=== PATIENT | female | born 1975 | race Caucasian/White ===

== ENCOUNTER 2016-09-12 13:29 | Emergency (ER) | payer OTHER ==
[2016-09-12 13:36] VITALS: BP 123/78
--- NOTE | 2016-09-12 14:27 | RAD ---
HISTORY: Cough COMPARISONS: December 15, 2015 VIEWS: 2: Frontal dual-energy and lateral views of the chest. FINDINGS: CARDIOMEDIASTINAL SILHOUETTE: The cardiomediastinal silhouette is normal. KRISTAN: The kristan are normal. PLEURA: The costophrenic angles are sharp. No pleural abnormalities are noted. LUNG PARENCHYMA: The lungs are clear. ABDOMEN: The upper abdomen is clear. There is no subphrenic gas. BONES AND SOFT TISSUES: Degenerative changes are noted along the spine. OTHER: None. IMPRESSION: NO ACTIVE CARDIOPULMONARY DISEASE.
--- NOTE | 2016-09-12 14:34 | ED ---
Respiratory - HPI Summary HPI Summary: 41F presents with cough for 3 weeks. She had fever weeks ago. She states that her cough does not seem to be getting better. She states she only has SOB when she walks and starts coughing. She denies any chest pain. She denies any calf pain or swelling. She denies any sore throat, abdominal pain, n/v/d, or sinus congestion. She denies any history of asthma or COPD. She is a nonsmoker. She does have a history of DVT many years ago. She is not on any blood thinners currently. - History of Current Complaint Chief Complaint: EDUpperRespComplaint Stated Complaint: COUGH Time Seen by Provider: 09/12/16 13:56 Pain Intensity: 4 - Allergy/Home Medications Allergies/Adverse Reactions: Allergies Allergy/AdvReac Type Severity Reaction Status Date / Time Amoxicillin Allergy Hives Verified 09/12/16 13:32 Bee Venom Allergy Anaphylatic Verified 09/12/16 13:32 Shock Sulfa Antibiotics Allergy Hives Verified 09/12/16 13:32 PMH/Surg Hx/FS Hx/Imm Hx Endocrine/Hematology History: Reports: Hx Diabetes - metformin, Hx Thyroid Disease - synthroid Cardiovascular History: Reports: Hx Hypertension - propanolol Neurological History: Reports: Hx Migraine Psychiatric History: Reports: Hx Anxiety, Hx Depression, Hx Post Traumatic Stress Disorder - Surgical History Surgery Procedure, Year, and Place: Fatty tissue removed from Left breast ( [place], 2006). C Section ( [facility]. 14 years ago) Infectious Disease History: Yes Infectious Disease History: Denies: Traveled Outside the [place] in Last 30 Days - Family History Known Family History: Positive: Cardiac Disease - Social History Alcohol Use: Rare Substance Use Type: Reports: Heroin Substance Use Comment - Amount & Last Used: 12/15/15-overdose Smoking Status (MU): Never Smoked Tobacco Review of Systems Negative: Fever Negative: Chest Pain Positive: Shortness Of Breath - when coughs, Cough Negative: Abdominal Pain All Other Systems Reviewed And Are Negative: Yes Physical Exam Triage Information Reviewed: Yes Vital Signs On Initial Exam: Initial Vitals Temp Pulse Resp BP Pulse Ox 97.6 F 84 18 123/78 98 09/12/16 13:33 09/12/16 13:33 09/12/16 13:33 09/12/16 13:33 09/12/16 13:33 Vital Signs Reviewed: Yes Appearance: Positive: Well-Appearing Skin: Positive: Warm, Dry Head/Face: Positive: Normal Head/Face Inspection Eyes: Positive: Normal, Conjunctiva Clear ENT: Positive: Normal ENT inspection, Pharynx normal, TMs normal Neck: Positive: Supple, Nontender Respiratory/Lung Sounds: Positive: Clear to Auscultation, Breath Sounds Present , Other - neg egophony Cardiovascular: Positive: Normal, RRR Musculoskeletal: Positive: Other - good pulses. Negative: Luis Angel Sign Left, Luis Angel Sign Right, Edema Left, Edema Right Diagnostics - Vital Signs Vital Signs Temp Pulse Resp BP Pulse Ox 09/12/16 13:33 97.6 F 84 18 123/78 98 - Laboratory Lab Statement: Any lab studies that have been ordered have been reviewed, and results considered in the medical decision making process. - Radiology chest Xray Interpretation: No Acute Changes Radiology Interpretation Completed By: Radiologist - EKG No standard instances Cardiac Rate: NL EKG Rhythm: Sinus Rhythm Disposition - Course Course Of Treatment: 41F presents with cough for 3 weeks. states that is not getting better. denies any chest pain, states only SOB when coughs nothing at rest. has h/o of DVT but denies any calf pain currently. lungs CTA. neg homans test. Her vitals are normal is not tachycardiac and has normal o2 stat. Got EKG normal. patient does not want blood work. explained at risk of PE due to previous DVT but patient says that thinks only SOB due to cough and does not believe has blood clot. explained risks of PE and patient understands and still does not want lab work or CTA. chest xray normal. will give prednisone, tessalon , and inhaler. patient is prediabetic and manage DM with diet. explained prednisone will increase sugars. told if devalop chest pain or SOB to return for CTA. patient understand and agrees with plan - Differential Dx - Cardiopulmonary Differential Diagnoses - Cardiopulmonary: Bronchitis, Lower Resp Infection, Pulmonary Embolism - Diagnoses Provider Diagnoses: Cough Discharge - Discharge Plan Condition: Good Disposition: HOME Prescriptions: Albuterol HFA INHALER* [Ventolin HFA Inhaler*] 1 puff INH Q4H PRN #1 mdi PRN Reason: Cough Benzonatate CAP* [Tessalon 100 MG CAP*] 100 mg PO TID #15 cap predniSONE TAB* [Deltasone TAB*] 40 mg PO DAILY #5 tab Patient Education Materials: Acute Bronchitis (ED) Referrals: [facility] [place] [facility]IAN REFERRAL [Outside] Additional Instructions: Use Tessalon three times a day for cough Use one puff inhaler every 6 hours for cough Take steroid once a day for 5 days Use saline in the nose for any nasal congestion Use humidifier or place warm bowls of water around the room to prevent cough Cough can last up to 4 weeks Establish care with primary care physician Return to ED if develop chest pain or shortness of breath or any new or worsening symptoms
== END 2016-09-12 14:50 | disposition home or self-care (01) ==
LOC: ED 13:29
DX: R05 Cough (principal); R06.02 Shortness of breath
CPT/HCPCS: 71020; 93005; 99282

== ENCOUNTER 2016-10-12 16:04 | Emergency (ER) | payer OTHER ==
[2016-10-12] MEDS ORDERED: HYDROcodone/ACETAMIN 5-325 MG* 1 TAB PO ONE (17:32)
--- NOTE | 2016-10-12 18:27 | RAD ---
Indication: Left upper extremity pain Duplex Doppler sonography of the left upper extremity venous system was performed. Bilaterally the internal jugular veins appear patent with normal phasic flow. The subclavian vein demonstrates augmentation bilaterally with normal phasic flow. The left axillary vein, brachial vein, basilic vein and cephalic veins appear patent and compressible. The radial and ulnar veins are also patent and compressible. IMPRESSION: No definite evidence of deep venous thrombosis of left upper extremity.
[2016-10-12 19:34] LABS: Hematocrit 42 % (35-47); Hemoglobin 13.5 g/dl (12.0-16.0); Mean Corpuscular HGB Conc 33 g/dl (31-36); Mean Corpuscular Hemoglobin 27 pg (27-31); Mean Corpuscular Volume 84 fL (80-97); Mean Platelet Volume 9 um3 (7.4-10.4); Red Blood Count 4.94 10^6/ul (4.0-5.4); Red Cell Distribution Width 16 % (10.5-15); White Blood Count 13.6 10^3/ul (3.5-10.8)
[2016-10-12 19:46] LABS: C Reactive Protein 22.09 mg/L (< 5.00); Calcium 8.9 mg/dL (8.6-10.3); EGFR African American 100.2 (>60); EGFR Non-African American 77.9 (>60)
[2016-10-12] MEDS ORDERED: oxyCODONE/Acetamin 5/325 MG* TAB PO ONE (19:54)
[2016-10-12] MEDS ORDERED: Cephalexin CAP* 500 MG PO ONE (19:54)
[2016-10-12 20:25] LABS: Erythrocyte Sed Rate 20 mm/Hr (0-14)
[2016-10-12 20:26] VITALS: BP 136/65
--- NOTE | 2016-10-14 08:35 | ED ---
I, Oh,Sonali, scribed for Fazal Ochoa MD on 10/12/16 at 1736 . Upper Extremity Pain - HPI Summary HPI Summary: This 41 y/o female presents to ED for LUE pain, swelling, and numbness/tingling at tip of LUE digits since this morning. Pt woke up with LUE discomfort this morning. She reports "cold feelings" at LUE. PMHx does include borderline DM, LUE wrist fx, IVDA with heroine OD, and DVT. Negative hx of open wound. Pt does have regular hot and cold flashes. Negative n/v, fever, or dysuria. Movement and palpation make the pain worse. - History of Current Complaint Chief Complaint: EDExtremityUpper Stated Complaint: LEFT ARM SWELLING Time Seen by Provider: 10/12/16 17:22 Hx Obtained From: Patient, Medical Records Mechanism Of Injury: Unknown Onset/Duration: Started Hours Ago, Atraumatic, Still Present Timing: Constant Severity Initially: Mild Severity Currently: Mild Pain Location: Forearm - LUE Character: Dull Aggravating Factor(s): Movement, Other - palpation Alleviating Factor(s): Nothing Associated Signs & Symptoms: Positive: Numbness/Tingling - at LUE fingers. Negative: Fever, Nausea, Vomiting - Allergies/Home Medications Allergies/Adverse Reactions: Allergies Allergy/AdvReac Type Severity Reaction Status Date / Time Amoxicillin Allergy Hives Verified 10/12/16 16:22 Bee Venom Allergy Anaphylatic Verified 10/12/16 16:22 Shock Sulfa Antibiotics Allergy Hives Verified 10/12/16 16:22 PMH/Surg Hx/FS Hx/Imm Hx Endocrine/Hematology History: Reports: Hx Diabetes - metformin, Hx Thyroid Disease - synthroid Cardiovascular History: Reports: Hx Hypertension - propanolol Neurological History: Reports: Hx Migraine Psychiatric History: Reports: Hx Anxiety, Hx Depression, Hx Post Traumatic Stress Disorder - Surgical History Surgery Procedure, Year, and Place: Fatty tissue removed from Left breast ( [place], 2006). C Section ( [facility]. 14 years ago) Infectious Disease History: Yes Infectious Disease History: Denies: Traveled Outside the [place] in Last 30 Days - Family History Known Family History: Positive: Cardiac Disease - Social History Alcohol Use: Rare Substance Use Type: Reports: Heroin Substance Use Comment - Amount & Last Used: 12/15/15-overdose Smoking Status (MU): Never Smoked Tobacco Review of Systems Positive: Other - "cold feeling" at LUE forearm. Negative: Fever, Chills Negative: Erythema Negative: Sore Throat Negative: Palpitations, Chest Pain Negative: Shortness Of Breath, Cough Negative: Vomiting, Nausea Negative: dysuria, hematuria Positive: Edema - mild LUE edema, Other - LUE pain. Negative: Myalgia Negative: Rash, Bruising Positive: Numbness - LUE digits Negative: Anxious, Depressed All Other Systems Reviewed And Are Negative: Yes Physical Exam - Summary Physical Exam Summary: Constitutional: Well-developed, Well-nourished, Alert. (-) Distressed Skin: Warm, Dry. Mild erythema at Ulnar aspect of left forearm between elbow and wrist. LUE bicep is mildly cooler than the RUE bicep. HENT: Normocephalic; Atraumatic Eyes: Conjunctiva normal Neck: Musculoskeletal ROM normal neck. (-) JVD, (-) Stridor, (-) Tracheal deviation Cardio: Rhythm regular, rate normal, Heart sounds normal; Intact and strong pulse at LUE ulnar and radial; cap refill less than 2 second at LUE digits. Pulmonary/Chest wall: Effort normal. (-) Respiratory distress, (-) Wheezes, (-) Rales Abd: Soft, (-) Tenderness, (-) Distension, (-) Guarding, (-) Rebound Musculoskeletal: (-) Edema. Mild pain with range of motion and palpation at LUE forearm. Lymph: (-) Cervical adenopathy Neuro: Alert, Oriented x3 Psych: Mood and affect Normal Triage Information Reviewed: Yes Vital Signs On Initial Exam: Initial Vitals Temp Pulse Resp BP Pulse Ox 97.6 F 78 16 131/79 97 10/12/16 16:22 10/12/16 16:22 10/12/16 16:22 10/12/16 16:22 10/12/16 16:22 Vital Signs Reviewed: Yes Diagnostics - Vital Signs Vital Signs Temp Pulse Resp BP Pulse Ox 10/12/16 16:24 97.6 F 75 18 131/79 97 10/12/16 16:22 97.6 F 78 16 131/79 97 - Laboratory Result Diagrams: 10/12/16 19:25 10/12/16 19:25 Lab Statement: Any lab studies that have been ordered have been reviewed, and results considered in the medical decision making process. Re-Evaluation - Re-Evaluation First Eval Re-Evaluation Time: 20:03 Comment: Nontoxic appearance. Pt wishes to go home. Course/Dx - Course Assessment/Plan: This 41 y/o female presents to ED after waking up with acute LUE pain this morning. No evidence of tenosynovitis or deep seated infection at LUE. Pt dneies any IV drug use for over a year. No evidence for bacteremia. Advised. No IV drug use for over a year. Pt is discharged with rx for keflex and pain med. - Diagnoses Provider Diagnoses: Left arm cellulitis Discharge - Discharge Plan Condition: Stable Disposition: HOME Prescriptions: Cephalexin CAP* [Keflex CAP*] 500 mg PO QID #40 cap oxyCODONE/Acetamin 5/325 MG* [Percocet 5/325 TAB*] 1 tab PO Q6H PRN #15 tab MDD 4 PRN Reason: Pain Scale 6-10 Patient Education Materials: Cephalexin (By mouth), Oxycodone/Acetaminophen ( By mouth), Cellulitis (ED) Referrals: [facility] [place] [facility]IAN REFERRAL [Outside] - 2 Days The documentation as recorded by the Shaun linn Soohyun accurately reflects the service I personally performed and the decisions made by me, Fazal Ochoa MD.
== END 2016-10-12 20:14 | disposition home or self-care (01) ==
LOC: ED 16:04
DX: L03.114 Cellulitis of left upper limb (principal); E11.9 Type 2 diabetes mellitus without complications; I10 Essential (primary) hypertension; Z88.0 Allergy status to penicillin; Z88.2 Allergy status to sulfonamides; E07.9 Disorder of thyroid, unspecified
CPT/HCPCS: 36415; 80048; 85027; 85610; 85652; 85730; 86140; 99283; A9270-GY

== ENCOUNTER 2016-11-08 15:30 | Emergency (ER) | payer OTHER ==
[2016-11-08 15:34] VITALS: BP 148/79
--- NOTE | 2016-11-08 16:27 | RAD ---
HISTORY: Cough, shortness of breath COMPARISONS: September 12, 2016 VIEWS: 2: Frontal dual-energy and lateral views of the chest. FINDINGS: CARDIOMEDIASTINAL SILHOUETTE: The cardiomediastinal silhouette is normal. KRISTAN: The kristan are normal. PLEURA: The costophrenic angles are sharp. No pleural abnormalities are noted. LUNG PARENCHYMA: The lungs are clear. ABDOMEN: The upper abdomen is clear. There is no subphrenic gas. BONES AND SOFT TISSUES: No bone or soft tissue abnormalities are noted. OTHER: None. IMPRESSION: NO ACTIVE CARDIOPULMONARY DISEASE.
--- NOTE | 2016-11-08 16:34 | ED ---
Respiratory - HPI Summary HPI Summary: 41F presents with cough and SOB for 2 days. She only has chest pain when she coughs. She denies any chest pain with deep breathing. She denies any headache , fever, or abdominal pain. She has history of DVT but denies any pain or swelling in calf muscles. She admits to sinus congestion and sore throat. She is a nonsmoker. She has no history of ashtma or COPD. She is a DM. She has been taking OTC cough medication. - History of Current Complaint Chief Complaint: EDUpperRespComplaint Stated Complaint: UPPER RESPIRATORY COMPLAINT Time Seen by Provider: 11/08/16 15:38 Pain Intensity: 7 Sputum Color: Green - Allergy/Home Medications Allergies/Adverse Reactions: Allergies Allergy/AdvReac Type Severity Reaction Status Date / Time Amoxicillin Allergy Hives Verified 11/08/16 15:31 Bee Venom Allergy Anaphylatic Verified 11/08/16 15:31 Shock Sulfa Antibiotics Allergy Hives Verified 11/08/16 15:31 PMH/Surg Hx/FS Hx/Imm Hx Endocrine/Hematology History: Reports: Hx Diabetes - metformin, Hx Thyroid Disease - synthroid Cardiovascular History: Reports: Hx Hypertension - propanolol Neurological History: Reports: Hx Migraine Psychiatric History: Reports: Hx Anxiety, Hx Depression, Hx Post Traumatic Stress Disorder - Surgical History Surgery Procedure, Year, and Place: Fatty tissue removed from Left breast ( [place], 2006). C Section ( [facility]. 14 years ago) Infectious Disease History: No Infectious Disease History: Denies: Traveled Outside the [place] in Last 30 Days - Family History Known Family History: Positive: Cardiac Disease - Social History Alcohol Use: Rare Substance Use Type: Reports: Heroin Substance Use Comment - Amount & Last Used: 12/15/15-overdose Smoking Status (MU): Never Smoked Tobacco Review of Systems Negative: Fever Positive: Sore Throat, Nasal Discharge Positive: Chest Pain - with cough Positive: Shortness Of Breath, Cough Negative: Abdominal Pain All Other Systems Reviewed And Are Negative: Yes Physical Exam Triage Information Reviewed: Yes Vital Signs On Initial Exam: Initial Vitals Temp Pulse Resp BP Pulse Ox 97.2 F 85 18 148/79 96 11/08/16 15:30 11/08/16 15:30 11/08/16 15:30 11/08/16 15:30 11/08/16 15:30 Vital Signs Reviewed: Yes Appearance: Positive: Well-Appearing Skin: Positive: Warm, Dry Head/Face: Positive: Normal Head/Face Inspection Eyes: Positive: Normal, Conjunctiva Clear ENT: Positive: Normal ENT inspection, Pharynx normal, Nasal congestion, TMs normal. Negative: Tonsillar swelling, Tonsillar exudate Respiratory/Lung Sounds: Positive: Clear to Auscultation, Breath Sounds Present Cardiovascular: Positive: Normal, RRR Diagnostics - Vital Signs Vital Signs Temp Pulse Resp BP Pulse Ox 11/08/16 15:30 97.2 F 85 18 148/79 96 - Laboratory Lab Statement: Any lab studies that have been ordered have been reviewed, and results considered in the medical decision making process. - Radiology chest Xray Interpretation: No Acute Changes Radiology Interpretation Completed By: Radiologist Disposition - Course Course Of Treatment: 41F presents with cough, SOB, and sinus congestion for 2 days. denies any fever. has h/o of DVT do not suspect PE. lungs CTA. chest xray normal. will treat supporatively with inhaler and guaifenesin with codeine. patient understands and agrees with plan - Differential Dx - Cardiopulmonary Differential Diagnoses - Cardiopulmonary: Bronchitis, Lower Resp Infection, Pulmonary Embolism - Diagnoses Provider Diagnoses: Upper respiratory disease Discharge - Discharge Plan Condition: Good Disposition: HOME Prescriptions: Albuterol HFA INHALER* [Ventolin HFA Inhaler*] 1 puff INH Q4H PRN #1 mdi PRN Reason: Cough guaiFENesin/CODIEN 100MG-10MG* [Robitussin AC 100Mg-10Mg*] 5 ml PO Q6H PRN #100 ml MDD 20 ml PRN Reason: Cough Patient Education Materials: Upper Respiratory Infection (ED) Referrals: [facility] [place] [facility]ERR[facility] [Outside] Additional Instructions: Use Tessalon three times a day for cough until pharmacy opens Use guaifenesin 5ml (1 tsp) every 6 hours for cough as needed Use inhaler up to two puffs every 4-6 hours for cough Use saline in the nose for nasal congestion, Use humidifier or place warm bowls of water around the room for cough Take Tylenol or ibuprofen for pain every 6 hours Return to ED if develop any new or worsening symptoms
[2016-11-08] MEDS ORDERED: Benzonatate CAP* 100 MG PO ONE (16:44)
[2016-11-08] MEDS ORDERED: Albuterol HFA INHALER* 8 gm MDI INH ONE (16:45)
== END 2016-11-08 16:57 | disposition home or self-care (01) ==
LOC: ED 15:30
DX: J06.9 Acute upper respiratory infection, unspecified (principal); E11.9 Type 2 diabetes mellitus without complications; Z88.0 Allergy status to penicillin; Z88.2 Allergy status to sulfonamides; Z79.84 Long term (current) use of oral hypoglycemic drugs
CPT/HCPCS: 71020; A9270-GY

== ENCOUNTER 2018-07-18 08:46 | Emergency (ER) | payer OTHER ==
[2018-07-18] MEDS ORDERED: Albuterol HFA INHALER* 8 gm MDI INH ONE (09:35)
[2018-07-18 11:33] VITALS: BP 0/0
--- NOTE | 2018-07-18 11:41 | ED ---
Shortness of Breath - HPI Summary HPI Summary: Patient is a 43-year-old female presenting to the ED with cough and congestion and shortness of breath 1 week. 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 She had some withdrawal symptoms at that time, but denies any at this time. She denies any fever, however endorses sweats and chills. She denies any sinus congestion, rhinorrhea, headache, neck pain, sore throat, difficulty swallowing or abdominal pain. Patient is a smoker, denies any alcohol. - History of Current Complaint Chief Complaint: EDFluSymptoms Time Seen by Provider: 07/18/18 09:11 Hx Obtained From: Patient Onset/Duration: Gradual Onset Timing: Constant Current Severity: Mild Associated Signs & Symptoms: Cough (Productive), Chest Pain w/Cough - Risk Factors Pulmonary Embolism: Negative Cardiac: Negative Pseudomonas: Chronic Lung Disease Tuberculosis: Immune Deficiency - Allergy/Home Medications Allergies/Adverse Reactions: Allergies Allergy/AdvReac Type Severity Reaction Status Date / Time amoxicillin Allergy Hives Verified 07/18/18 09:10 bee venom protein (honey bee) Allergy Anaphylatic Verified 07/18/18 09:10 Shock Sulfa (Sulfonamide Allergy Hives Verified 07/18/18 09:10 Antibiotics) PMH/Surg Hx/FS Hx/Imm Hx Previously Healthy: Yes Endocrine/Hematology History: Reports: Hx Diabetes - metformin, Hx Thyroid Disease - synthroid Cardiovascular History: Reports: Hx Hypertension - propanolol Neurological History: Reports: Hx Migraine Psychiatric History: Reports: Hx Anxiety, Hx Depression, Hx Post Traumatic Stress Disorder - Surgical History Surgery Procedure, Year, and Place: Fatty tissue removed from Left breast ( [place], 2006). C Section ( [facility]. 14 years ago) Infectious Disease History: Yes Infectious Disease History: Denies: Traveled Outside the [place] in Last 30 Days - Family History Known Family History: Positive: Cardiac Disease - Social History Occupation: Unemployed Lives: Alone Alcohol Use: None Hx Substance Use: Yes Substance Use Type: Reports: Other Substance Use Comment - Amount & Last Used: Meth last week Hx Tobacco Use: Yes Review of Systems Negative: Fever, Chills, Fatigue, Skin Diaphoresis Negative: Palpitations, Chest Pain Positive: Shortness Of Breath, Cough Genitourinary: Negative Positive: no symptoms reported, see HPI Negative: Arthralgia, Myalgia Negative: Rash, Bruising Negative: Headache, Weakness, Syncope All Other Systems Reviewed And Are Negative: Yes Physical Exam Triage Information Reviewed: Yes Vital Signs On Initial Exam: Initial Vitals Temp Pulse Resp BP Pulse Ox 98.8 F 77 22 132/77 92 07/18/18 08:56 07/18/18 08:56 07/18/18 08:56 07/18/18 08:56 07/18/18 08:56 Vital Signs Reviewed: Yes Appearance: Positive: Well-Appearing, Well-Nourished Skin: Positive: Warm, Skin Color Reflects Adequate Perfusion Head/Face: Positive: Normal Head/Face Inspection Eyes: Positive: EOMI, DRISS, Conjunctiva Clear Neck: Positive: No Lymphadenopathy Respiratory/Lung Sounds: Positive: Wheezes. Negative: Rales, Rhonchi, Tracheal Deviation, Unable to speak in full sentences, Fatigue Cardiovascular: Positive: RRR, Pulses are Symmetrical in both Upper and Lower Extremities Musculoskeletal: Positive: Normal, Strength/ROM Intact Neurological: Positive: Alert, Oriented to Person Place, Time Psychiatric: Positive: Affect/Mood Appropriate Diagnostics - Vital Signs Vital Signs Temp Pulse Resp BP Pulse Ox 07/18/18 11:32 0 F 0 0 0/0 0 07/18/18 08:56 98.8 F 77 22 132/77 92 - Laboratory Lab Statement: Any lab studies that have been ordered have been reviewed, and results considered in the medical decision making process. Course/Dx - Course Course Of Treatment: During the course treatment, patient is evaluated for shortness of breath, cough and chest congestion. On physical examination, there is bilateral wheezing without rhonchi. She is given an albuterol inhaler. X-ray obtained. While awaiting x-ray results, patient eloped. - Diagnoses Differential Diagnosis/HQI/PQRI: Positive: Bronchitis, Chest Wall Pain, Pneumonia Provider Diagnoses: Bronchitis Discharge - Sign-Out/Discharge Documenting (check all that apply): Patient Departure - Discharge Plan Condition: Stable Disposition: ELOPEMENT Prescriptions: Azithromycin TAB* [Zithromax TAB (Z-HELENE) 250 mg #6 tabs] 2 tab PO .TODAY, THEN 1 DAILY #1 helene Patient Education Materials: Acute Bronchitis (ED) Referrals: No Primary Care Phys,NOPCP [Primary Care Provider] - Additional Instructions: Azithromycin - take 2 tabs today and 1 tab daily x 4 days Albuterol inhaler as needed - Billing Disposition and Condition Condition: STABLE Disposition: Elopement
== END 2018-07-18 11:32 | disposition left against medical advice (07) ==
LOC: ED 08:46
DX: J40 Bronchitis, not specified as acute or chronic (principal); E11.9 Type 2 diabetes mellitus without complications; Z79.84 Long term (current) use of oral hypoglycemic drugs; E07.9 Disorder of thyroid, unspecified; I10 Essential (primary) hypertension; Z88.0 Allergy status to penicillin; Z88.2 Allergy status to sulfonamides; Z91.030 Bee allergy status
CPT/HCPCS: 71046; 99282; A9270-GY